=== PATIENT | female | born 1995 | race Two or more races ===

== ENCOUNTER 2021-02-10 09:19 | Emergency (ER) | payer OTHER ==
[~2021-02-10] VITALS: Ht 154.9 cm; Wt 52.2 kg
[2021-02-10] MEDS ORDERED: KETO10TA2 PO (12:54)
[2021-02-10] MEDS ORDERED: AMOX-CLAV 875-1 EACH PO (12:54)
== END 2021-02-10 13:53 | disposition home or self-care (01) ==
LOC: ER 09:19
DX: J35.01 Chronic tonsillitis (principal)